=== PATIENT | female | born 2000 | race Two or more races ===

== ENCOUNTER 2021-05-13 21:14 | Emergency (ER) | payer OTHER ==
[~2021-05-13] VITALS: Ht 175.3 cm; Wt 113.4 kg
[2021-05-14] MEDS ORDERED: BACTRIM DS TAB1 EACH PO (03:53)
[2021-05-14] MEDS ORDERED: ZOVIRAX400 MG PO (03:53)
[2021-05-14] MEDS ORDERED: ULTRACET PO (04:26)
== END 2021-05-14 04:44 | disposition home or self-care (01) ==
LOC: ER 21:14
DX: B00.9 Herpesviral infection, unspecified (principal); L30.8 Other specified dermatitis